=== PATIENT | female | born 1945 | race Caucasian/White ===

== ENCOUNTER → 2016-11-04 | Outpatient (CLI) | payer OTHER | LOC: FIMAGING 09:56 | PROVIDERS: ATTEND Internal Medicine Rheumatology | DX: M50.322 Other cervical disc degeneration at C5-C6 level (principal); M43.12 Spondylolisthesis, cervical region; M51.24 Other intervertebral disc displacement, thoracic region ==

== ENCOUNTER → 2017-03-30 | Outpatient (CLI) | payer OTHER | LOC: BMCIMAGING 09:29 | PROVIDERS: ATTEND Internal Medicine | DX: Z12.31 Encounter for screening mammogram for malignant neoplasm of breast (principal) | CPT/HCPCS: G0202 ==

== ENCOUNTER → 2018-04-20 | Outpatient (CLI) | payer OTHER | LOC: BMCIMAGING 14:55 | PROVIDERS: ATTEND Internal Medicine | DX: Z12.31 Encounter for screening mammogram for malignant neoplasm of breast (principal) ==

== ENCOUNTER 2018-11-07 08:01 | Day surgery (SDC) | payer OTHER ==
[2018-11-07] MEDS ORDERED: NS 1,000 ML IV ONE (08:06)
[2018-11-07] MEDS ORDERED: FAMOTIDINE 20 MG TAB PO ONE (08:06)
[2018-11-07] MEDS ORDERED: diphenhydrAMINE 25 MG CAP PO ONE ×2 (08:06→08:36)
[2018-11-07] MEDS ORDERED: DIAZEPAM 5 MG TAB PO ONE (08:06)
[2018-11-07] MEDS ORDERED: ASPIRIN EC 325 MG TAB PO ONE ×2 (08:06→08:36)
[2018-11-07] MEDS ORDERED: fentaNYL 100 MCG/2 ML INJ ONE (08:35)
[2018-11-07] MEDS ORDERED: MIDAZOLAM 2 MG/2 ML VIAL ONE ×2 (08:35→08:36)
[2018-11-07] MEDS ORDERED: LIDOCAINE 1% 300 MG/30 ML SDV ONE (08:35)
[2018-11-07] MEDS ORDERED: FAMOTIDINE 20 MG TAB ONE (08:36)
[2018-11-07] MEDS ORDERED: DIAZEPAM 5 MG TAB ONE (08:37)
[2018-11-07] MEDS ORDERED: IOPAMIDOL (ISOVUE 370) 100 ML BTL IV ONE ×2 (08:37→09:56)
[2018-11-07 08:43] LABS: PLATELET COUNT 247 10^3/uL (150-400)
[2018-11-07 08:51] LABS: INR 1.01 (0.83-1.16); PROTIME(PATIENT) 12.9 SEC (12.0-15.0)
--- NOTE | 2018-11-07 09:19 | PDHPUP ---
History & Physical Update H&P update statement: This history and physical update is based on an assessment of the patient which was completed after admission or registration (within 24 hours), but prior to the surgery/procedure.73 year old female with CAD based on calcium score of 233 with symptoms of chest tightness, hutchinson and abnormal nuc stress with 1.5 mmST depression, 6 min exercise and apical infarct. Risks and benefits discussed in detail. Consents signed. Pt agreeable to pursue. H&P update: H&P reviewed & patient examined, no change in patient's condition since H&P completed
--- NOTE | 2018-11-07 09:20 | PDPROPOC ---
Sedation Plan of Care Sedation Plan of Care: mental status noted, patient educated of risks, benefits , alternatives, patient can tolerate sedation ASA Classification: ASA 2 Planned drugs: fentanyl, midazolam Mallampati Score: Class 2 Mallampati Reference Image: Patient passed 3-3-2 rule?: Yes
[2018-11-07] MEDS ORDERED: BIVALIRUDIN 250 MG/5 ML VIAL IV ONE (09:55)
[2018-11-07] MEDS ORDERED: NITROGLYCERIN 1,500 MCG/15 ML VIAL MISC ONE (09:56)
[2018-11-07] MEDS ORDERED: ADENOSINE 90 MG/30 ML VIAL IV ONE (10:19)
[2018-11-07] MEDS ORDERED: PRASUGREL HCL 10 MG TAB ONE (10:50)
[2018-11-07] MEDS ORDERED: CLOPIDOGREL BISULFATE 75 MG TAB PO ONE (10:53)
[2018-11-07] MEDS ORDERED: NITROGLYCERIN 0.4 MG BTL SL PRN (10:53)
--- NOTE | 2018-11-07 10:57 | PDCTREPORT ---
Cardiothoracic Procedure Rpt Cardiothoracic Procedure Report: Procedure: PCI and stenting of the LAD, FFR assessment of indeterminate RCA stenosis. Indications: Crescendo angina in the setting of abnormal stress test known coronary disease by imaging. Procedure: MS by my partner Dr. Cesario Landrum to performed PCI and stenting of the proximal LAD. I have reviewed his diagnostic angiograms. Critical proximal LAD stenosis identified. QC I suggest 3.6 mm proximal vessel. Patient was anticoagulated with Angiomax. Initial attempts at cannulating the left main with a JL4 guiding catheter were made. While the guide fit well, it directed the PCI wire into the ramus and circumflex artery system. Despite aggressive Kurt she being were unable to enter the LAD. System was withdrawn. Using a 6 Latvian EBU 3.75 guiding catheter left main coronary selectively intubated. Using a 0.014 Kinetix wire the LAD was entered the wire placed in the distal vessel. Primary stenting was performed with a 4.0 x 16 mm synergy stent. Stent was post dilated with a 4 x 15 mm quantum balloon x2. Repeat angiogram showed NICK grade 3 flow. Calcification was seen within the wall of the stent. System was withdrawn. Using a 6 Latvian JR4 guiding catheter the right coronary selectively intubated. Using an FFR wire appropriately equalized FFR measurement was made of indeterminate RCA stenosis with a FFR of 1 at rest. Injection of contrast showed FFR 0.94. Conclusions: Successful PCI and stenting of the proximal LAD. Non flow obstructing lesion in the mid RCA. Recommend aggressive medical therapy secondary prevention dual antiplatelet therapy for 1 year and clinical follow-up. Sheath was removed using Angio-Seal. ACT was therapeutic.
--- NOTE | 2018-11-07 11:09 | CPIP ---
[f rep st] INVASIVE CARDIAC PROCEDURE DATE OF PROCEDURE: 11/07/2018 PROCEDURE PERFORMED: Diagnostic left heart catheterization. INDICATION FOR PROCEDURE: Patient with complaints of exertional chest tightness and dyspnea on exert ion, coupled with abnormal exercise nuclear stress test with 1.[address]-segment depression with only 6 minutes of exercise with apical fixed defect with preserved left ventricular function. In summary, the patient is a pleasant 73-year-old female with no previous history of coronary disease who did und ergo a coronary calcium score earlier this year demonstrating a calcium score of 233 placing her in t he 75th to 90th percentile for age matched patients with majority of her calcium within the LAD. She has been symptomatic with dyspnea, shortness of breath, and chest tightness. In the setting of elev ated calcium score symptoms, EKG changes, and with 6 minutes of exercise, as well as abnormal nuclear findings, I have recommended diagnostic left heart catheterization. Risks and benefits of the proce dure were discussed in detail. She was agreeable to pursue. No contraindication to dual antiplatele t therapy. DESCRIPTION OF PROCEDURE: After informed consent was obtained, the patient was brought to the [facility] catheterization lab where she was prepped and draped in sterile fashion. Using 1% lidocaine, the r ight groin was anesthetized. Using modified Seldinger technique and micropuncture technique, 6-Frenc h catheter was placed into the right common femoral artery without complications. JL4 catheter was u sed to take images of the left coronary artery in multiple projections. JL4 catheter was exchanged o rufino a guidewire for a JR4 catheter. JR4 catheter was used to cannulate the right coronary artery. I mages of the right coronary anatomy were obtained in multiple projections. JR4 catheter was exchange d over wire for angled pigtail catheter. Angled pigtail catheter was used to cross the aortic valve. LVEDP was assessed. Left ventriculogram was performed and aortic valve gradient was assessed on pu ll-back. Angled pigtail catheter was removed over a guidewire without complications. Imaging of the right common femoral artery site demonstrates appropriate placement of sheath above the bifurcation below the inguinal ligament. FINDINGS: 1. Left main normal size and caliber, bifurcates into left anterior descending and left circumflex c oronary artery. There is no evidence of coronary disease within the left main. 2. Left anterior descending is a large caliber vessel that wraps around the LV apex. There is evide nce of 80% to 90% proximal stenosis proximal to the level of a large 1st septal branch. There are mi ld luminal irregularities within the mid LAD. The distal LAD is free of disease. 3. Circumflex vessel is a nondominant vessel. There is no evidence of coronary disease within the l eft main. There is some mild luminal irregularities in the 1st obtuse marginal branch. 4. The right coronary artery is a large dominant vessel that bifurcates into PDA and PLV branch. Th ere is evidence of 50% stenosis in the mid right coronary artery. HEMODYNAMICS: LVEF 60% to 65%. LVEDP 22 mmHg. Aortic valve gradient none. CONCLUSIONS: 1. Severe single-vessel coronary disease of the proximal left anterior descending proximal to the 1s t septal branch. 2. Moderate stenosis of the mid right coronary artery. 3. Mild luminal irregularities within the obtuse marginal branch. 4. Normal left ventricular function. 5. Mildly elevated left ventricular end-diastolic pressure at 22 mmHg. PLAN: I have reviewed images with my interventional colleague. We will plan for interventional inte rvention to the proximal LAD. Would also recommend FFR to the mid RCA lesion after stenting to the L AD. /[id number]/MODL
[2018-11-07] MEDS ORDERED: ONDANSETRON 4 MG/2 ML VIAL ONE (12:03)
[2018-11-07] MEDS ORDERED: ONDANSETRON DISINTEGRATING 4 MG TAB PO PRN (12:09)
[2018-11-08] MEDS ORDERED: ASPIRIN EC 325 MG TAB PO SCH (09:00)
[2018-11-08] MEDS ORDERED: CLOPIDOGREL BISULFATE 75 MG TAB PO SCH (09:00)
== END 2018-11-07 17:25 | disposition home or self-care (01) ==
LOC: FCATH 08:01
PROVIDERS: ATTEND Internal Medicine Interventional Cardiology
PROC: 027034Z Dilation of Coronary Artery, One Artery with Drug-eluting Intraluminal Device, Percutaneous Approach (ICD-10-PCS; principal; 2018-11-07)
PROC: 4A033BC Measurement of Arterial Pressure, Coronary, Percutaneous Approach (ICD-10-PCS; principal; 2018-11-07)
PROC: B2111ZZ Fluoroscopy of Multiple Coronary Arteries using Low Osmolar Contrast (ICD-10-PCS; 2018-11-07)
PROC: B2151ZZ Fluoroscopy of Left Heart using Low Osmolar Contrast (ICD-10-PCS; 2018-11-07)
PROC: 4A023N7 Measurement of Cardiac Sampling and Pressure, Left Heart, Percutaneous Approach (ICD-10-PCS; 2018-11-07)
DX: I25.118 Atherosclerotic heart disease of native coronary artery with other forms of angina pectoris (principal); I10 Essential (primary) hypertension; E78.5 Hyperlipidemia, unspecified; Z82.49 Family history of ischemic heart disease and other diseases of the circulatory system
CPT/HCPCS: 92928; 93458; 93571; C1725; C1769; C1887; C1760; C1874; C9600; J0153; J0583; J1644; J2250; J2405; J3010; Q9967